=== PATIENT | male | born 1955 | race Caucasian/White ===

== ENCOUNTER 2017-04-07 14:00 | Inpatient (IN) | payer MEDICARE ==
[~2017-04-07] VITALS: Ht 172.7 cm; Wt 96.0 kg
[2017-04-07] VITALS (16 sets, daily range): BP systolic 139–228; BP diastolic 81–137; PULSE 63–106; RESP 16–19; TEMP 98.3; O2SAT 90–99
[2017-04-07] MEDS ORDERED: SODIUM CHLORIDE 0.9% FLUSH 10 ML FLUSH IVF PRN (15:45)
[2017-04-07 16:16] LABS: AUTOMATED NEUTROPHIL # 6.1 TH/MM3 (1.8-7.7); BASOPHIL # 0.1 TH/MM3 (0-0.2); BASOPHIL % 0.9 % (0.0-2.0); EOSINOPHIL % 0.3 % (0.0-4.0); HEMO FLAGS DIFF FINAL; LYMPH % 8.4 % (9.0-44.0); LYMPHOCYTE # 0.6 TH/MM3 (1.0-4.8); MEAN CELL VOLUME 88.6 FL (80.0-100.0); MEAN CORPUSCULAR HEMOGLOBIN 29.8 PG (27.0-34.0); MEAN CORPUSCULAR HGB CONC 33.6 % (32.0-36.0); MONO % 7.4 % (0.0-8.0); PLATELET COUNT 164 TH/MM3 (150-450); RED BLOOD COUNT 5.19 MIL/MM3 (4.50-5.90); RED CELL DISTRIBUTION WIDTH 14.7 % (11.6-17.2); WHITE BLOOD COUNT 7.4 TH/MM3 (4.0-11.0)
--- NOTE | 2017-04-07 16:28 | RADRPT ---
EXAM DATE/TIME: 04/07/2017 16:00 [place] COMPARISON: No previous studies available for comparison. INDICATIONS : Shortness of breath. MEDICAL HISTORY : None. SURGICAL HISTORY : None. ENCOUNTER: Initial ACUITY: 1 day PAIN SCORE: 0/10 LOCATION: Bilateral chest FINDINGS: A single view of the chest demonstrates the lungs to be symmetrically aerated without evidence of mas s, or infiltrate. There is bilateral lateral costophrenic angle blunting could be pleural effusions . The cardiomediastinal contours are unremarkable. Ununited left clavicular fracture CONCLUSION: Blunting of both costophrenic angles suspicious for pleural effusions. No focal infiltrate Phoenix Kilgore MD on April 07, 2017 at 16:25 Board Certified Radiologist. This report was verified electronically.
[2017-04-07 16:29] LABS: APTT (PATIENT) 28.3 SEC (24.3-30.1); PROTHROMBIN TIME - PATIENT 11.2 SEC (9.8-11.6)
--- NOTE | 2017-04-07 16:31 | PD ---
HPI Chief Complaint: Respiratory Symptoms Time Seen by Provider: 16:31 (Mehnaz Juarez) Time Seen by Provider: 07:49 (Suzanne Workman DO) Travel History International Travel<30 days: No Contact w/Intl Traveler<30days: No Traveled to known affect area: No (Mehnaz Juarez) History of Present Illness HPI 61-year-old male with history of COPD, tobacco dependency, and occasional marijuana use, presents to emergency department for evaluation of worsening shortness of breath. Patient states that over the last week his shortness of breath has been worsening. He states he has had COPD exacerbations in the past , but this is different. He says it is accompanied by a productive cough of white frothy sputum. He also states that he cannot even walk across the room without significant shortness of breath. Denies any fever or chills. Denies any chest pain. Denies any abdominal pain, nausea, or vomiting. He has no other symptoms to report at this time. (Mehnaz Juarez) PFSH Past Medical History COPD: Yes (Mehnaz Juarez) Social History Tobacco Use: Yes Substance Use: Yes (Mehnaz Juarez) Allergies-Medications (Allergen,Severity, Reaction): Coded Allergies: No Known Allergies (Unverified , 04/07/17) Reported Meds & Prescriptions Reported Meds & Active Scripts Active Reported Metoprolol Tartrate 25 Mg Tab 25 Mg PO BID Trazodone (Trazodone HCl) 150 Mg Tablet 150 Mg PO HS Enalapril (Enalapril Maleate) 20 Mg Tab 20 Mg PO DAILY Aspirin 81 Mg Chew 81 Mg CHEW DAILY Tamsulosin (Tamsulosin HCl) 0.4 Mg Cap 0.4 Mg PO HS (Suzanne Workman DO) Review of Systems Except as stated in HPI: all other systems reviewed are Neg (Mehnaz Juarez ) Physical Exam Narrative GENERAL: Well-nourished male patient, sitting up in bed, tachypneic, but in no significant distress SKIN: Focused skin assessment warm/dry. HEAD: Atraumatic. Normocephalic. EYES: Pupils equal and round. No scleral icterus. No injection or drainage. ENT: No nasal bleeding or discharge. Mucous membranes pink and moist. NECK: Trachea midline. No JVD. CARDIOVASCULAR: Elevated rate and regular rhythm. RESPIRATORY: No accessory muscle use. Diminished, faint wheeze, fine crackles in the bases. Breath sounds equal bilaterally. GASTROINTESTINAL: Abdomen soft, non-tender, nondistended. Hepatic and splenic margins not palpable. MUSCULOSKELETAL: No obvious deformities. No clubbing. No cyanosis. 1+ bilateral lower extremity edema. NEUROLOGICAL: Awake and alert. No obvious cranial nerve deficits. Motor grossly within normal limits. Normal speech. PSYCHIATRIC: Appropriate mood and affect; insight and judgment normal. (Mehnaz Juarez) Data Data Last Documented VS Vital Signs Date Time Temp Pulse Resp B/P Pulse Ox O2 Delivery O2 Flow Rate FiO2 04/07/17 18:35 106 228/128 04/07/17 18:19 95 3.00 04/07/17 17:54 18 Nasal Cannula 04/07/17 14:13 98.3 (Suzanne Workman DO) Orders Complete Blood Count With Diff (04/07/17 15:45) Basic Metabolic Panel (Bmp) (04/07/17 15:45) B-Type Natriuretic Peptide (04/07/17 15:45) Act Partial Throm Time (Ptt) (04/07/17 15:45) Prothrombin Time / Inr (Pt) (04/07/17 15:45) Ckmb (Isoenzyme) Profile (04/07/17 15:45) Troponin I (04/07/17 15:45) Iv Access Insert/Monitor (04/07/17 15:45) Electrocardiogram (04/07/17 15:45) Ecg Monitoring (04/07/17 15:45) Oximetry (04/07/17 15:45) Oxygen Administration (04/07/17 15:45) Chest, Single Ap (04/07/17 15:45) Sodium Chloride 0.9% Flush (Ns Flush) (04/07/17 15:45) Hydralazine Inj (Apresoline Inj) (04/07/17 16:45) CKMB (04/07/17 15:00) CKMB% (04/07/17 15:00) Albuterol-Ipratropium Neb (Duoneb Neb) (04/07/17 17:30) Albuterol-Ipratropium Neb (Duoneb Neb) (04/07/17 17:30) Furosemide Inj (Lasix Inj) (04/07/17 18:15) Nitroglycerin 2% Oint (Nitroglycerin 2% (04/07/17 18:30) Admit Order (Ed Use Only) (04/07/17 18:35) (Suzanne Workman DO) Labs Laboratory Tests Test 04/07/17 15:00 White Blood Count 7.4 TH/MM3 Red Blood Count 5.19 MIL/MM3 Hemoglobin 15.5 GM/DL Hematocrit 46.0 % Mean Corpuscular Volume 88.6 FL Mean Corpuscular Hemoglobin 29.8 PG Mean Corpuscular Hemoglobin 33.6 % Concent Red Cell Distribution Width 14.7 % Platelet Count 164 TH/MM3 Mean Platelet Volume 10.5 FL Neutrophils (%) (Auto) 83.0 % Lymphocytes (%) (Auto) 8.4 % Monocytes (%) (Auto) 7.4 % Eosinophils (%) (Auto) 0.3 % Basophils (%) (Auto) 0.9 % Neutrophils # (Auto) 6.1 TH/MM3 Lymphocytes # (Auto) 0.6 TH/MM3 Monocytes # (Auto) 0.5 TH/MM3 Eosinophils # (Auto) 0.0 TH/MM3 Basophils # (Auto) 0.1 TH/MM3 CBC Comment DIFF FINAL Differential Comment Prothrombin Time 11.2 SEC Prothromb Time International 1.0 RATIO Ratio Activated Partial 28.3 SEC Thromboplast Time Sodium Level 139 MEQ/L Potassium Level 3.6 MEQ/L Chloride Level 104 MEQ/L Carbon Dioxide Level 23.3 MEQ/L Anion Gap 12 MEQ/L Blood Urea Nitrogen 13 MG/DL Creatinine 1.15 MG/DL Estimat Glomerular Filtration 65 ML/MIN Rate Random Glucose 92 MG/DL Calcium Level 8.4 MG/DL Total Creatine Kinase 124 U/L Creatine Kinase MB 5.0 NG/ML Troponin I 0.04 NG/ML B-Type Natriuretic Peptide 1852 PG/ML (Suzanne Workman DO) MDM Medical Decision Making Medical Screen Exam Complete: Yes Emergency Medical Condition: Yes Medical Record Reviewed: Yes Differential Diagnosis COPD exacerbation versus pneumonia versus influenza versus CHF versus cardiac arrhythmia versus electrolyte abnormality Narrative Course 61-year-old male presents to emergency department for evaluation of worsening shortness of breath. Patient appears without distress. Patient requests oxygen and this maintains his oxygen saturation greater than 94%. Patient becomes panicked when the oxygen is turned off, however he is not on oxygen at home. Lab work, duo neb, and oxygen are ordered. He is quite hypertensive and given hydralazine IV, Laboratory Tests Test 04/07/17 15:00 White Blood Count 7.4 TH/MM3 Red Blood Count 5.19 MIL/MM3 Hemoglobin 15.5 GM/DL Hematocrit 46.0 % Mean Corpuscular Volume 88.6 FL Mean Corpuscular Hemoglobin 29.8 PG Mean Corpuscular Hemoglobin 33.6 % Concent Red Cell Distribution Width 14.7 % Platelet Count 164 TH/MM3 Mean Platelet Volume 10.5 FL Neutrophils (%) (Auto) 83.0 % Lymphocytes (%) (Auto) 8.4 % Monocytes (%) (Auto) 7.4 % Eosinophils (%) (Auto) 0.3 % Basophils (%) (Auto) 0.9 % Neutrophils # (Auto) 6.1 TH/MM3 Lymphocytes # (Auto) 0.6 TH/MM3 Monocytes # (Auto) 0.5 TH/MM3 Eosinophils # (Auto) 0.0 TH/MM3 Basophils # (Auto) 0.1 TH/MM3 CBC Comment DIFF FINAL Differential Comment Prothrombin Time 11.2 SEC Prothromb Time International 1.0 RATIO Ratio Activated Partial 28.3 SEC Thromboplast Time Sodium Level 139 MEQ/L Potassium Level 3.6 MEQ/L Chloride Level 104 MEQ/L Carbon Dioxide Level 23.3 MEQ/L Anion Gap 12 MEQ/L Blood Urea Nitrogen 13 MG/DL Creatinine 1.15 MG/DL Estimat Glomerular Filtration 65 ML/MIN Rate Random Glucose 92 MG/DL Calcium Level 8.4 MG/DL Total Creatine Kinase 124 U/L Creatine Kinase MB 5.0 NG/ML Troponin I 0.04 NG/ML B-Type Natriuretic Peptide 1852 PG/ML Last Impressions Chest X-Ray 04/07/17 1549 Signed Impressions: Service Date/Time: March 16:00 - CONCLUSION: Blunting of both costophrenic angles suspicious for pleural effusions. No focal infiltrate Phoenix Kilgore MD Patient is given 20 mg of IV Lasix and 1 inch Nitropaste. I have reviewed all the findings and labs with him. Patient confirms he has no history of congestive heart failure. A call has been placed to [facility] for admission. 185 patient's blood pressure remains elevated. It is 211/124. My attending physician has ordered nitro drip and we have called Dr. Mcclelland for an update. ( Mehnaz Juarez) Diagnosis Primary Impression: CHF (congestive heart failure) Qualified Code: I50.9 - Acute congestive heart failure, unspecified congestive heart failure type Additional Impressions: Pleural effusion on left Pleural effusion on right Hypertensive urgency Admitting Information Admitting Physician Requests: Admit (Mehnaz Juarez) Condition: Stable Mehnaz Juarez Apr 07, 2017 16:31 Suzanne Workman DO Apr 08, 2017 14:20
[2017-04-07] MEDS ORDERED: METO25TA3 PO (16:40)
[2017-04-07] MEDS ORDERED: ASPI81CH CHEW (16:40)
[2017-04-07] MEDS ORDERED: TAMS0.4C4 PO (16:40)
[2017-04-07] MEDS ORDERED: TRAZ1TAB45 PO (16:40)
[2017-04-07] MEDS ORDERED: ENAL20TA PO (16:40)
[2017-04-07 16:42] LABS: ANION GAP 12 MEQ/L (5-15); BICARBONATE 23.3 MEQ/L (21.0-32.0); BLOOD UREA NITROGEN 13 MG/DL (7-18); CHLORIDE 104 MEQ/L (98-107); GLOMERULAR FILTRATION RATE 65 ML/MIN (>89); POTASSIUM 3.6 MEQ/L (3.5-5.1); SODIUM (NA) 139 MEQ/L (136-145)
[2017-04-07 16:45] LABS: CREATINE KINASE 124 U/L (39-308)
[2017-04-07] MEDS ORDERED: hydrALAZINE HCL 20 MG/ML VIAL IV PUSH ONE (16:45)
[2017-04-07] MEDS ORDERED: RESP: ALBUTEROL 2.5 MG/IPRATROPIUM 0.5 MG NEB (SCH) NEB ONE ×2 (17:30)
[2017-04-07] MEDS ORDERED: FUROSEMIDE 40 MG/4 ML VIAL IV PUSH ONE (18:15)
--- NOTE | 2017-04-07 18:24 | PD ---
Physical Exam Narrative I, Dr. Workman, have reviewed the advance practice practitioner's documentation and am in agreement, met with the patient face to face, made the diagnosis, and the medical decision making was done by me. *My assessment and Findings: COPD exacerbation vs. CHF vs. pulmonary edema vs. Pneumonia vs. ACS 61yo M with sob for 5 days. +Cig smoking. Pt does appear tachypneic but speaking in sentences. O2 sat 93% on 3L NC. States he does not use any oxygen at home. Labs reviewed, no leukocytosis. BNP 1852. Troponin 0.04. CXR showed blunting of both costophrenic angles suspicious for pleural effusions. no focal infiltrate. BP was also elevated and pt was given hydralazine and lasix as well as nitroglycerin ointment. Pt states he feels better while on oxygen. Pt to be admitted for CHF. Discussed with [facility]ist Dr. Mcclelland and admitted to Dr. Perdomo. Reevaluated at bedside and blood pressure is going up so will start pt on nitroglycerin drip and change admission to [facility]. Data Data Last Documented VS Vital Signs Date Time Temp Pulse Resp B/P Pulse Ox O2 Delivery O2 Flow Rate FiO2 04/07/17 18:35 106 228/128 04/07/17 18:19 95 3.00 04/07/17 17:54 18 Nasal Cannula 04/07/17 14:13 98.3 Orders Complete Blood Count With Diff (04/07/17 15:45) Basic Metabolic Panel (Bmp) (04/07/17 15:45) B-Type Natriuretic Peptide (04/07/17 15:45) Act Partial Throm Time (Ptt) (04/07/17 15:45) Prothrombin Time / Inr (Pt) (04/07/17 15:45) Ckmb (Isoenzyme) Profile (04/07/17 15:45) Troponin I (04/07/17 15:45) Iv Access Insert/Monitor (04/07/17 15:45) Electrocardiogram (04/07/17 15:45) Ecg Monitoring (04/07/17 15:45) Oximetry (04/07/17 15:45) Oxygen Administration (04/07/17 15:45) Chest, Single Ap (04/07/17 15:45) Sodium Chloride 0.9% Flush (Ns Flush) (04/07/17 15:45) Hydralazine Inj (Apresoline Inj) (04/07/17 16:45) CKMB (04/07/17 15:00) CKMB% (04/07/17 15:00) Albuterol-Ipratropium Neb (Duoneb Neb) (04/07/17 17:30) Albuterol-Ipratropium Neb (Duoneb Neb) (04/07/17 17:30) Furosemide Inj (Lasix Inj) (04/07/17 18:15) Nitroglycerin 2% Oint (Nitroglycerin 2% (04/07/17 18:30) Admit Order (Ed Use Only) (04/07/17 18:35) Labs Laboratory Tests Test 04/07/17 15:00 White Blood Count 7.4 TH/MM3 Red Blood Count 5.19 MIL/MM3 Hemoglobin 15.5 GM/DL Hematocrit 46.0 % Mean Corpuscular Volume 88.6 FL Mean Corpuscular Hemoglobin 29.8 PG Mean Corpuscular Hemoglobin 33.6 % Concent Red Cell Distribution Width 14.7 % Platelet Count 164 TH/MM3 Mean Platelet Volume 10.5 FL Neutrophils (%) (Auto) 83.0 % Lymphocytes (%) (Auto) 8.4 % Monocytes (%) (Auto) 7.4 % Eosinophils (%) (Auto) 0.3 % Basophils (%) (Auto) 0.9 % Neutrophils # (Auto) 6.1 TH/MM3 Lymphocytes # (Auto) 0.6 TH/MM3 Monocytes # (Auto) 0.5 TH/MM3 Eosinophils # (Auto) 0.0 TH/MM3 Basophils # (Auto) 0.1 TH/MM3 CBC Comment DIFF FINAL Differential Comment Prothrombin Time 11.2 SEC Prothromb Time International 1.0 RATIO Ratio Activated Partial 28.3 SEC Thromboplast Time Sodium Level 139 MEQ/L Potassium Level 3.6 MEQ/L Chloride Level 104 MEQ/L Carbon Dioxide Level 23.3 MEQ/L Anion Gap 12 MEQ/L Blood Urea Nitrogen 13 MG/DL Creatinine 1.15 MG/DL Estimat Glomerular Filtration 65 ML/MIN Rate Random Glucose 92 MG/DL Calcium Level 8.4 MG/DL Total Creatine Kinase 124 U/L Creatine Kinase MB 5.0 NG/ML Troponin I 0.04 NG/ML B-Type Natriuretic Peptide 1852 PG/ML [facility] Supervised Visit with [facility]: Yes Interpretation(s) EKG: NSR 92bpm. Normal axis. ST depression V5, V6. Critical Care Narrative Aggregate critical care time was 60 minutes. Time to perform other separately billable procedures was not included in the critical care time. My time did not include minutes spent treating any other patients simultaneously or on activities that did not directly contribute to the patient's treatment. The services I provided to this patient were to treat and/or prevent clinically significant deterioration that could result in: cardiovascular collapse or . I provided critical care services requiring my management, as noted below: Chart data review, documentation time, medication orders and management, vital sign assessments/reviewing monitor data, ordering and reviewing lab tests, ordering and interpreting/reviewing x-rays and diagnostic studies, care of the patient and discussion of the patient with the admitting physicians. Diagnosis Primary Impression: Pulmonary edema Qualified Code: J81.0 - Acute pulmonary edema Admitting Information Admitting Physician Requests: it Suzanne Workman DO Apr 07, 2017 18:24
[2017-04-07] MEDS ORDERED: NITROGLYCERIN 2% OINT 1 GM PACKET TOPICAL ONE (18:30)
[2017-04-07] MEDS ORDERED: NALOXONE HCL 0.4 MG/ML AMP IV PRN (18:45)
[2017-04-07] MEDS ORDERED: SODIUM CHLORIDE 0.9% FLUSH 10 ML FLUSH IV FLUSH PRN (18:45)
[2017-04-07] MEDS ORDERED: ONDANSETRON HCL 4 MG/2 ML VIAL IVP PRN (18:45)
[2017-04-07] MEDS ORDERED: ENALAPRILAT 1.25 MG/ML VIAL IV PUSH PRN (19:00)
[2017-04-07] MEDS ORDERED: NITROGLYCERIN-DEXTROSE INJ 250 ML IV ONE (19:00)
--- NOTE | 2017-04-07 19:38 | HHI.HP ---
HPI [facility] Primary Care Physician Nathaniel Ingram III, MD Admission Diagnosis Pulmonary edema Diagnoses: Travel History International Travel<30 Days: No Contact w/Intl Traveler <30 Da: No Traveled to Known Affected Are: No History of Present Illness This is a very pleasant 61-year-old male patient of Dr. Ingram. The patient still smokes. He is now smoking less than 1 pack a day. He recently moved to this area from [place]. He had a cardiac catheterization in [place] about 2 years ago. He stated that this cardiac catheterization was normal. He came into the emergency department with worsening shortness of breath and lower extremity edema. His arrival blood pressure was about 220. He stated that he has had trouble with his blood pressure for number of years. The blood pressure control has been especially difficult to achieve up the last 2 years. He denies any chest pain. No fever chills or diaphoresis. He coughs repeatedly. He has chronic wheezing. He was seen by the undersigned in room C 29 at the emergency department. He denies oriented. He continues to cough but feeling much better. He specifically stated that his breathing got much better once his supplemental oxygen was started. Review of Systems Other As detailed above, 10 systems reviewed and otherwise negative Past Family Social History Past Medical History COPD tobacco dependency Occasional marijuana Poorly controlled hypertension Enlarged prostate Insomnia Past Surgical History Cardiac catheterization 2 years ago Surgery involving his right tibia Reported Medications Reported Meds & Active Scripts Active Reported Metoprolol Tartrate 25 Mg Tab 25 Mg PO BID Trazodone (Trazodone HCl) 150 Mg Tablet 150 Mg PO HS Enalapril (Enalapril Maleate) 20 Mg Tab 20 Mg PO DAILY Aspirin 81 Mg Chew 81 Mg CHEW DAILY Tamsulosin (Tamsulosin HCl) 0.4 Mg Cap 0.4 Mg PO HS Allergies: Coded Allergies: No Known Allergies (Unverified , 04/07/17) Family History Reviewed but not contributory Social History Smokes less than pack a day, no excessive alcohol, occasional marijuana, no illicit drug use otherwise Physical Exam Vital Signs Vital Signs Date Time Temp Pulse Resp B/P Pulse Ox O2 Delivery O2 Flow Rate FiO2 04/07/17 19:20 93 18 170/92 91 Nasal Cannula 4 04/07/17 19:07 200/105 04/07/17 18:51 102 19 211/124 97 Nasal Cannula 3 04/07/17 18:35 106 228/128 04/07/17 18:19 95 3.00 04/07/17 17:54 90 18 161/103 95 Nasal Cannula 3 04/07/17 17:03 88 17 164/108 95 Nasal Cannula 3 04/07/17 16:43 94 19 185/137 95 Nasal Cannula 04/07/17 16:41 95 Nasal Cannula 3 04/07/17 16:41 90 Room Air 04/07/17 16:32 17 93 Room Air 04/07/17 16:20 95 Nasal Cannula 0.5 04/07/17 16:19 17 95 Nasal Cannula 0.5 04/07/17 14:26 70 18 96 Nasal Cannula 04/07/17 14:13 98.3 97 18 170/108 94 Nasal Cannula 2 Physical Exam GENERAL: This is a well-nourished, well-developed patient, mild resting dyspnea . SKIN: No rashes, ecchymoses or lesions. Cool and dry. HEAD: Atraumatic. Normocephalic. No temporal or scalp tenderness. EYES: Pupils equal round and reactive. Extraocular motions intact. No scleral icterus. No injection or drainage. ENT: Nose without bleeding, purulent drainage or septal hematoma. Throat without erythema, tonsillar hypertrophy or exudate. Uvula midline. Airway patent. NECK: Trachea midline. No JVD or lymphadenopathy. Supple, nontender, no meningeal signs. CARDIOVASCULAR: Regular rate and rhythm without murmurs, gallops, or rubs. RESPIRATORY: Bilateral wheezes and crackles GASTROINTESTINAL: Abdomen soft, non-tender, nondistended. No hepato-splenomegaly , or palpable masses. No guarding. MUSCULOSKELETAL: Extremities without clubbing, cyanosis, or edema. No joint tenderness, effusion, or edema noted. No calf tenderness. Negative Homans sign bilaterally. NEUROLOGICAL: Awake and alert. Cranial nerves II through XII intact. Normal speech. Laboratory Laboratory Tests Test 04/07/17 15:00 White Blood Count 7.4 Red Blood Count 5.19 Hemoglobin 15.5 Hematocrit 46.0 Mean Corpuscular Volume 88.6 Mean Corpuscular Hemoglobin 29.8 Mean Corpuscular Hemoglobin 33.6 Concent Red Cell Distribution Width 14.7 Platelet Count 164 Mean Platelet Volume 10.5 Neutrophils (%) (Auto) 83.0 Lymphocytes (%) (Auto) 8.4 Monocytes (%) (Auto) 7.4 Eosinophils (%) (Auto) 0.3 Basophils (%) (Auto) 0.9 Neutrophils # (Auto) 6.1 Lymphocytes # (Auto) 0.6 Monocytes # (Auto) 0.5 Eosinophils # (Auto) 0.0 Basophils # (Auto) 0.1 CBC Comment DIFF FINAL Differential Comment Prothrombin Time 11.2 Prothromb Time International 1.0 Ratio Activated Partial 28.3 Thromboplast Time Sodium Level 139 Potassium Level 3.6 Chloride Level 104 Carbon Dioxide Level 23.3 Anion Gap 12 Blood Urea Nitrogen 13 Creatinine 1.15 Estimat Glomerular Filtration 65 Rate Random Glucose 92 Calcium Level 8.4 Total Creatine Kinase 124 Creatine Kinase MB 5.0 Troponin I 0.04 B-Type Natriuretic Peptide 1852 Result Diagram: 04/07/17 1500 04/07/17 1500 Imaging Last 24 hours Impressions Chest X-Ray 04/07/17 1545 Signed Impressions: Service Date/Time: March 16:00 - CONCLUSION: Blunting of both costophrenic angles suspicious for pleural effusions. No focal infiltrate Phoenix Kilgore MD Assessment and Plan Assessment and Plan Assessment Hypertensive emergency Pulmonary edema Severe COPD Probable acute heart failure Tobacco abuse Management The patient has been admitted to telemetry Lasix 40 mg IV every 12 hours Losartan 50 mg daily Solu-Medrol intravenously 1 day Supplemental potassium 2-D echocardiogram Serial CKs and troponins Consult Cardiology Supplemental oxygen Nebulizers as needed Discussed with patient Discussed with nurse 45 minutes Alton Perdomo MD Apr 07, 2017 19:38
[2017-04-07] MEDS ORDERED: RESP: ALBUTEROL 2.5 MG/IPRATROPIUM 0.5 MG NEB (PRN) NEB (20:00)
[2017-04-07] MEDS: methylPREDNISolone SOD SUCC 40 MG/1 ML VIAL IV PUSH SCH (20:36)
[2017-04-07] MEDS: SODIUM CHLORIDE 0.9% FLUSH 10 ML FLUSH IV FLUSH SCH (20:52)
[2017-04-07] MEDS: traZODone HCL 50 MG TAB PO SCH (21:00)
[2017-04-07] MEDS ORDERED: NON-FORMULARY DRUG (Trazodone 150 MG) PO SCH (21:00)
[2017-04-07] MEDS: TAMSULOSIN HCL 0.4 MG CAP PO SCH (23:36)
[2017-04-07] MEDS: METOPROLOL TARTRATE 25 MG TAB PO SCH (23:36)
[2017-04-07] MEDS: HEPARIN SODIUM - SQ 10,000 UNITS/ML VIAL SQ SCH (23:36)
[2017-04-08] VITALS (13 sets, daily range): BP systolic 138–186; BP diastolic 88–121; PULSE 69–99; RESP 16–27; TEMP 97.6–98.5; O2SAT 94–99
[2017-04-08 05:56] LABS: AUTOMATED NEUTROPHIL # 5.4 TH/MM3 (1.8-7.7); BASOPHIL % 0.5 % (0.0-2.0); HEMATOCRIT 50.3 % (39.0-51.0); HEMO FLAGS DIFF FINAL; LYMPH % 7.1 % (9.0-44.0); LYMPHOCYTE # 0.4 TH/MM3 (1.0-4.8); MEAN CORPUSCULAR HEMOGLOBIN 28.9 PG (27.0-34.0); MEAN CORPUSCULAR HGB CONC 32.5 % (32.0-36.0); MONO % 2.4 % (0.0-8.0); PLATELET COUNT 199 TH/MM3 (150-450); RED BLOOD COUNT 5.65 MIL/MM3 (4.50-5.90); RED CELL DISTRIBUTION WIDTH 14.6 % (11.6-17.2)
[2017-04-08] MEDS: methylPREDNISolone SOD SUCC 40 MG/1 ML VIAL IV PUSH SCH ×4 (06:06→17:12)
[2017-04-08 06:51] LABS: BICARBONATE 24.7 MEQ/L (21.0-32.0); POTASSIUM 3.8 MEQ/L (3.5-5.1)
[2017-04-08] MEDS: METOPROLOL TARTRATE 25 MG TAB PO SCH (07:37)
[2017-04-08] MEDS: HEPARIN SODIUM - SQ 10,000 UNITS/ML VIAL SQ SCH ×2 (07:38→21:20)
[2017-04-08] MEDS: FUROSEMIDE 40 MG/4 ML VIAL IV PUSH SCH ×3 (07:38→21:19)
[2017-04-08] MEDS: ASPIRIN 81 MG CHEW TAB CHEW SCH (07:46)
[2017-04-08] MEDS ORDERED: METOPROLOL TARTRATE 25 MG TAB PO ONE (08:00)
[2017-04-08] MEDS ORDERED: ENALAPRIL MALEATE 10 MG TAB PO SCH (09:00)
[2017-04-08] MEDS ORDERED: FUROSEMIDE 40 MG/4 ML VIAL IV PUSH SCH (09:00)
[2017-04-08] MEDS: SODIUM CHLORIDE 0.9% FLUSH 10 ML FLUSH IV FLUSH SCH ×2 (09:00→21:21)
[2017-04-08] MEDS: cloNIDine HCL 0.1 MG TAB PO PRN ×2 (09:41→15:43)
[2017-04-08] MEDS: POTASSIUM CHLORIDE 20 MEQ CONTROLLED RELEASE TAB PO SCH ×2 (09:41→21:19)
--- NOTE | 2017-04-08 10:16 | MB ---
cc: MIRNA KHANNA MD DATE OF CONSULTATION 04/08/2017 REASON FOR CONSULTATION CHF HISTORY OF PRESENT ILLNESS Mr. Raymundo is a 61-year-old man you does have a prior history of heart failure. He reports that after doing some illicit drugs several years ago, he had a heart failure episode that resulted in cardiac catheterization. He reports his cardiac catheterization revealed both clean coronaries and normal LV function. Since that time, he denies any illicit drug use. He reports he has been taking his blood pressure pills although his meds were changed at that hospitalization and he has had difficulty with blood pressure control since that time. Today on his arrival, his systolic was in the 220's. The patient reports he is feeling some better now. He has had some progressive shortness of breath that precipitated his visit. PAST MEDICAL HISTORY Significant for: 1. Hypertension 2. COPD 3. CHF 4. Tobacco 5. BPH OUTPATIENT MEDICATIONS Reportedly include: 1. Metoprolol 25 mg b.i.d. 2. Enalapril 20 mg a day 3. Flomax 0.4 mg q.h.s. 4. Aspirin 5. Trazodone ALLERGIES NO KNOWN DRUG ALLERGIES. FAMILY HISTORY Noncontributory SOCIAL HISTORY The patient does smoke and denies any illicit drug use. REVIEW OF SYSTEMS Except as mentioned in the HPI, all 12 systems are negative. PHYSICAL EXAM VITAL SIGNS: Do show a peak BP of 211/112, currently 186/121, heart rate 99, respiratory rate 16. GENERAL: He is an obese man who is in no apparent distress. NECK: His neck is free from JVD. LUNGS: The lungs do have some fine crackles in the bases. CARDIOVASCULAR: He has a normal S1 and S2. I do not appreciate any murmurs, rubs or gallops. ABDOMEN: Soft. EXTREMITIES: The extremities are free from edema. Chest x-ray shows blunting of both costophrenic angles. LAB VALUES Significant for a creatinine of 1.21. The troponins is 0.04/0.04/0.03 with a BNP of 852. IMPRESSION Uncontrolled hypertension - This is almost certainly the etiology to his heart failure as well. I discussed the importance of medication compliance as well as fluid and sodium restrictions. I will increase his meds. CHF - This appears to be an acute on chronic diastolic dysfunction. Echocardiogram will be requested. Again, meds will be adjusted. DISPOSITION The patient is stable in the a.m. on p.o. meds. It would be reasonable for him to be discharged. Elizabeth Sorto/DJL /9:50 AM /10:10 AM
[2017-04-08] MEDS: TAMSULOSIN HCL 0.4 MG CAP PO SCH (14:43)
--- NOTE | 2017-04-08 14:52 | EKG ---
Date Performed: 04/07/2017 Time Performed: 16:39:59 PTAGE: 61 years EKG: Sinus rhythm WITH OCCASIONAL VENTRICULAR PREMATURE COMPLEXES LEFT ATRIAL ENLARGEMENT NONSPECIFIC ST & T-WAVE ABNO RMALITY ABNORMAL ECG NO PREVIOUS TRACING DOCTOR: Fercho Abbasi Interpretating Date/Time 04/08/2017 14:49:54
--- NOTE | 2017-04-08 16:14 | ECHRPT ---
Indication: Heart failure, unspecified CONCLUSIONS Mildly dilated left ventricle. Wall thickness is normal. The left ventricular systolic function is severely reduced with an estimated ejection fraction in th e range of 30-35%. The left atrial size is mildly dilated. [id number] mitral valve regurgitation. Trace aortic valve regurgitation. There is trace tricuspid valve regurgitation. The estimated pulmonary arterial pressure is 31 mmHg. BP: 182 / 116 HR: 93 Rhythm: Sinus MEASUREMENTS (Male / Female) Normal Values Technical Quality:Fair 2D ECHO LV Diastolic Diameter PLAX 5.9 cm 4.2 - 5.9 / 3.9 - 5.3 cm LV Systolic Diameter PLAX 5.0 cm IVS Diastolic Thickness 1.1 cm 0.6 - 1.0 / 0.6 - 0.9 cm LVPW Diastolic Thickness 1.0 cm 0.6 - 1.0 / 0.6 - 0.9 cm LV Relative Wall Thickness 0.4 RV Internal Dim ED PLAX 2.6 cm LA Systolic Diameter LX 4.4 cm 3.0 - 4.0 / 2.7 - 3.8 cm M-MODE Aortic Root Diameter MM 3.5 cm AV Cusp Separation MM 2.2 cm DOPPLER MR Peak Velocity 500.0 cm/s MR Peak Gradient 100.0 mmHg TR Peak Velocity 256.0 cm/s TR Peak Gradient 26.2 mmHg FINDINGS LEFT VENTRICLE Mildly dilated left ventricle. Wall thickness is normal. The left ventricular systolic function is severely reduced with an estimated ejection fraction in th e range of 30-35%. RIGHT VENTRICLE Normal right ventricular size and systolic function. LEFT ATRIUM The left atrial size is mildly dilated. RIGHT ATRIUM The right atrial size is normal. ATRIAL SEPTUM Normal atrial septal thickness without atrial level shunting by limited color doppler interrogation. AORTA The aortic root and proximal ascending aorta are normal in size on limited imaging. MITRAL VALVE [id number] mitral valve regurgitation. AORTIC VALVE Trace aortic valve regurgitation. TRICUSPID VALVE There is trace tricuspid valve regurgitation. The estimated pulmonary arterial pressure is 31 mmHg. PULMONARY VALVE The pulmonary valve is not well visualized. VESSELS The inferior vena cava is normal in size. PERICARDIUM No pericardial effusion. Valente Linton MD, FACC, [facility] (Electronically Signed) Final Date:08 April 2017 16:13
--- NOTE | 2017-04-08 19:35 | HHI.PR ---
Subjective Interval History Alert, oriented, feels better, less cough, still wheezing however improved since yesterday Review of Systems Constitutional Constitutional Remarks As detailed above, 10 systems reviewed and otherwise negative Vitals/Results Intake & Output 04/07/17 04/07/17 04/08/17 15:00 23:00 07:00 Output Total 700 ml Balance -700 ml Output Urine Total 700 ml # Voids 1 Vital Signs Vital Signs Date Time Temp Pulse Resp B/P Pulse Ox O2 Delivery O2 Flow Rate FiO2 04/08/17 17:00 142/92 04/08/17 16:00 138/97 04/08/17 15:30 98.5 82 27 164/118 98 04/08/17 14:49 82 04/08/17 12:00 98.0 75 22 148/94 94 04/08/17 09:50 80 04/08/17 09:30 97.8 80 24 167/88 96 04/08/17 08:39 99 16 186/121 95 Room Air 04/08/17 07:25 93 16 182/116 95 Room Air 04/08/17 02:53 94 18 166/90 95 Nasal Cannula 4 04/08/17 00:11 95 18 152/90 99 Room Air 04/07/17 23:20 80 16 145/88 99 Nasal Cannula 4 04/07/17 21:40 93 18 139/81 94 Nasal Cannula 4 04/07/17 21:03 93 18 150/98 99 Nasal Cannula 4 04/07/17 20:15 63 18 177/90 93 Nasal Cannula 4 CBC/BMP: 04/08/17 0535 04/08/17 0535 Lab Results Laboratory Tests Test 04/08/17 04/08/17 04/08/17 00:35 05:35 15:50 Troponin I 0.04 NG/ML 0.03 NG/ML 0.03 NG/ML White Blood Count 6.0 TH/MM3 Red Blood Count 5.65 MIL/MM3 Hemoglobin 16.3 GM/DL Hematocrit 50.3 % Mean Corpuscular Volume 89.0 FL Mean Corpuscular Hemoglobin 28.9 PG Mean Corpuscular Hemoglobin 32.5 % Concent Red Cell Distribution Width 14.6 % Platelet Count 199 TH/MM3 Mean Platelet Volume 10.1 FL Neutrophils (%) (Auto) 90.0 % Lymphocytes (%) (Auto) 7.1 % Monocytes (%) (Auto) 2.4 % Eosinophils (%) (Auto) 0.0 % Basophils (%) (Auto) 0.5 % Neutrophils # (Auto) 5.4 TH/MM3 Lymphocytes # (Auto) 0.4 TH/MM3 Monocytes # (Auto) 0.1 TH/MM3 Eosinophils # (Auto) 0.0 TH/MM3 Basophils # (Auto) 0.0 TH/MM3 CBC Comment DIFF FINAL Differential Comment Sodium Level 139 MEQ/L Potassium Level 3.8 MEQ/L Chloride Level 104 MEQ/L Carbon Dioxide Level 24.7 MEQ/L Anion Gap 10 MEQ/L Blood Urea Nitrogen 15 MG/DL Creatinine 1.21 MG/DL Estimat Glomerular Filtration 61 ML/MIN Rate Random Glucose 123 MG/DL Calcium Level 8.5 MG/DL Physical Exam General General Appearance: Comfortable, Obese Eyes Eye Exam: Pupils Reactive Ears & Nose Ears & Nose Exam: Nasal Mucosa [place] Neck Neck Exam: Trachea Midline Pulmonary Resp Exam: Breath Sounds Equal, No Distress Cardiology CV Exam: Normal Sinus Rhythm, Good Perfusion Gastrointestinal/Abdomen GI Exam: Soft, Non-Tender, Bowel Sounds Present Musculoskeletal MS Exam: Normal Gait, Normal Tone Integumentary Skin Exam: Warm, Dry Neurologic Neuro Exam: Alert, Awake, Oriented, Speech Clear, Moving All Extremities, 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, No Focal Deficits Psychiatric Psych Exam: Appropriate Responses VTE Prophylaxis VTE Prophylaxis Meds: Heparin Assessment/Plan Assessment/Plan Assessment Hypertensive emergency, blood pressure improved Frequent ectopy Pulmonary edema Severe COPD Severe dyspnea, improved acute heart failure Ejection fraction 30-35% Rule out sleep apnea Tobacco abuse Management Continue telemetry Lasix 40 mg IV every 12 hours Losartan 50 mg daily Solu-Medrol discontinued Prednisone by mouth started Supplemental potassium Cardiology following, thank you Supplemental oxygen Nebulizers as needed Follow electrolytes and replace as needed Follow renal function Follow hemoglobin Needs to lose weight Likely needs sleep study also Discussed with patient Discussed with nurse 35 minutes Alton Perdomo MD Apr 08, 2017 19:34
[2017-04-08] MEDS ORDERED: POTASSIUM CHLORIDE 25 MEQ EFFERVESCENT TAB PO PRN (19:45)
[2017-04-08] MEDS ORDERED: POTASSIUM PHOSPHATE MONOBASIC 500 MG TAB PO PRN (19:45)
[2017-04-08] MEDS ORDERED: POTASSIUM PHOSPHATE MONOBASIC 500 MG TAB PO/TUBE PRN (19:45)
[2017-04-08] MEDS ORDERED: POTASSIUM CHLOR 20 MEQ PREMIX 100 ML IV PRN ×2 (19:45)
[2017-04-08] MEDS ORDERED: MAGNESIUM SULFATE INJ 2 GM in SODIUM CHLORIDE 0.9% INJ 96 ML IV PRN (19:45)
[2017-04-08] MEDS ORDERED: POTASSIUM PHOSPHATE INJ 30 MMOL in SODIUM CHLOR 0.9% 250 ML INJ 250 ML IV PRN (19:45)
[2017-04-08] MEDS ORDERED: MAGNESIUM SULFATE INJ 4 GM in SODIUM CHLORIDE 0.9% INJ 92 ML IV PRN (19:45)
[2017-04-08] MEDS ORDERED: MAGNESIUM OXIDE 400 MG TAB PO PRN (19:45)
[2017-04-08] MEDS ORDERED: SODIUM PHOSPHATE INJ 30 MMOL in SODIUM CHLOR 0.9% 250 ML INJ 240 ML IV PRN (19:45)
[2017-04-08] MEDS ORDERED: POTASSIUM CHLOR 40 MEQ PREMIX 100 ML IV PRN ×2 (19:45)
[2017-04-08] MEDS: POTASSIUM CHLORIDE 25 MEQ EFFERVESCENT TAB NG SCH (21:19)
[2017-04-08] MEDS: NIFEdipine 30 MG SUSTAINED RELEASE TAB PO SCH ×2 (21:19→21:28)
[2017-04-08] MEDS: ENALAPRIL MALEATE 10 MG TAB PO SCH (21:20)
[2017-04-08] MEDS: METOPROLOL TARTRATE 50 MG TAB PO SCH (21:21)
[2017-04-09] VITALS (23 sets, daily range): BP systolic 117–158; BP diastolic 76–100; PULSE 57–97; RESP 16–24; TEMP 97.3–98.2; O2SAT 96–98
[2017-04-09] MEDS: cloNIDine HCL 0.1 MG TAB PO PRN (00:09)
[2017-04-09] MEDS: traZODone HCL 50 MG TAB PO SCH (00:10)
[2017-04-09] MEDS: methylPREDNISolone SOD SUCC 40 MG/1 ML VIAL IV PUSH SCH ×2 (00:11→09:04)
[2017-04-09 05:37] LABS: AUTOMATED NEUTROPHIL # 7.2 TH/MM3 (1.8-7.7); BASOPHIL % 0.1 % (0.0-2.0); HEMATOCRIT 46.3 % (39.0-51.0); HEMO FLAGS DIFF FINAL; LYMPH % 4.6 % (9.0-44.0); LYMPHOCYTE # 0.4 TH/MM3 (1.0-4.8); MEAN CELL VOLUME 90.2 FL (80.0-100.0); MEAN CORPUSCULAR HEMOGLOBIN 29.2 PG (27.0-34.0); MEAN CORPUSCULAR HGB CONC 32.3 % (32.0-36.0); MONO % 1.9 % (0.0-8.0); NEUT % 93.4 % (16.0-70.0); PLATELET COUNT 175 TH/MM3 (150-450); RED BLOOD COUNT 5.14 MIL/MM3 (4.50-5.90); WHITE BLOOD COUNT 7.7 TH/MM3 (4.0-11.0)
[2017-04-09 05:53] LABS: BICARBONATE 27.5 MEQ/L (21.0-32.0); MAGNESIUM 2.4 MG/DL (1.5-2.5); POTASSIUM 4.2 MEQ/L (3.5-5.1)
[2017-04-09] MEDS: POTASSIUM CHLORIDE 25 MEQ EFFERVESCENT TAB NG SCH (09:03)
[2017-04-09] MEDS: HEPARIN SODIUM - SQ 10,000 UNITS/ML VIAL SQ SCH (09:04)
[2017-04-09] MEDS: NIFEdipine 30 MG SUSTAINED RELEASE TAB PO SCH (09:05)
[2017-04-09] MEDS: ENALAPRIL MALEATE 10 MG TAB PO SCH (09:05)
[2017-04-09] MEDS: FUROSEMIDE 40 MG/4 ML VIAL IV PUSH SCH (09:05)
[2017-04-09] MEDS: METOPROLOL TARTRATE 50 MG TAB PO SCH (09:05)
[2017-04-09] MEDS: ASPIRIN 81 MG CHEW TAB CHEW SCH (09:05)
[2017-04-09] MEDS: SODIUM CHLORIDE 0.9% FLUSH 10 ML FLUSH IV FLUSH SCH (09:06)
[2017-04-09] MEDS: POTASSIUM CHLORIDE 20 MEQ CONTROLLED RELEASE TAB PO SCH (09:06)
--- NOTE | 2017-04-09 12:13 | HHI.PR ---
Subjective Subjective Remarks some sob with activity no cp anxious to go home tele reviewed, SR no fever eating okay Review of Systems Constitutional Constitutional Remarks 12 point ros completed, negative except as noted above Vitals/Results Intake & Output 04/08/17 04/08/17 04/09/17 14:59 22:59 06:59 Intake Total 480 ml 1710 ml 240 ml Output Total 1200 ml 475 ml 150 ml Balance -720 ml 1235 ml 90 ml Intake Oral 480 ml 1710 ml 240 ml Output Urine Total 1200 ml 475 ml 150 ml # Voids 2 1 # Bowel Movements 0 0 Vital Signs Vital Signs Date Time Temp Pulse Resp B/P Pulse Ox O2 Delivery O2 Flow Rate FiO2 04/09/17 10:00 57 04/09/17 09:00 58 04/09/17 08:00 98.2 72 24 122/93 98 04/09/17 08:00 68 04/09/17 07:20 81 04/09/17 06:42 59 119/80 04/09/17 06:00 60 04/09/17 05:00 66 04/09/17 04:30 98.1 69 22 130/88 96 04/09/17 04:00 60 04/09/17 03:00 74 04/09/17 02:00 71 126/83 04/09/17 02:00 70 04/09/17 01:00 59 04/09/17 00:33 75 04/09/17 00:23 97.3 76 16 158/100 96 04/08/17 23:00 69 18 143/91 96 04/08/17 19:00 97.6 76 18 163/114 97 04/08/17 17:00 142/92 04/08/17 16:00 138/97 04/08/17 15:30 98.5 82 27 164/118 98 04/08/17 14:49 82 CBC/BMP: 04/09/17 0332 04/09/17 0332 Lab Results Laboratory Tests Test 04/08/17 04/08/17 04/09/17 15:50 19:51 03:32 Troponin I 0.03 NG/ML Potassium Level 4.5 MEQ/L 4.2 MEQ/L Phosphorus Level 2.8 MG/DL 3.5 MG/DL Magnesium Level 2.4 MG/DL 2.4 MG/DL White Blood Count 7.7 TH/MM3 Red Blood Count 5.14 MIL/MM3 Hemoglobin 15.0 GM/DL Hematocrit 46.3 % Mean Corpuscular Volume 90.2 FL Mean Corpuscular Hemoglobin 29.2 PG Mean Corpuscular Hemoglobin 32.3 % Concent Red Cell Distribution Width 15.0 % Platelet Count 175 TH/MM3 Mean Platelet Volume 10.0 FL Neutrophils (%) (Auto) 93.4 % Lymphocytes (%) (Auto) 4.6 % Monocytes (%) (Auto) 1.9 % Eosinophils (%) (Auto) 0.0 % Basophils (%) (Auto) 0.1 % Neutrophils # (Auto) 7.2 TH/MM3 Lymphocytes # (Auto) 0.4 TH/MM3 Monocytes # (Auto) 0.1 TH/MM3 Eosinophils # (Auto) 0.0 TH/MM3 Basophils # (Auto) 0.0 TH/MM3 CBC Comment DIFF FINAL Differential Comment Sodium Level 139 MEQ/L Chloride Level 104 MEQ/L Carbon Dioxide Level 27.5 MEQ/L Anion Gap 8 MEQ/L Blood Urea Nitrogen 24 MG/DL Creatinine 1.25 MG/DL Estimat Glomerular Filtration 59 ML/MIN Rate Random Glucose 130 MG/DL Calcium Level 8.6 MG/DL Physical Exam General General Appearance: Well Developed, Comfortable, Obese Eyes Eye Exam: Pupils Reactive Ears & Nose Ears & Nose Exam: Nasal Mucosa [place] Neck Neck Exam: Trachea Midline Pulmonary Resp Exam: Breath Sounds Equal, No Distress Resp Remarks faint rales at bases Cardiology CV Exam: Normal Sinus Rhythm, Good Perfusion Gastrointestinal/Abdomen GI Exam: Soft, Non-Tender, Bowel Sounds Present, Non-Distended Musculoskeletal MS Exam: Normal Gait, Normal Tone Integumentary Skin Exam: Warm, Dry Extremeties Extremities Exam: No Edema, Pedal Pulses Palpable Neurologic Neuro Exam: Alert, Awake, Oriented, Speech Clear, Moving All Extremities, Bulk Receiver Equal, No Focal Deficits Psychiatric Psych Exam: Appropriate Responses VTE Prophylaxis VTE Prophylaxis Meds: Heparin Assessment/Plan Assessment/Plan Hypertensive emergency, blood pressure improved Frequent ectopy Pulmonary edema Severe COPD Severe dyspnea, improved acute heart failure Ejection fraction 30-35% Rule out sleep apnea Tobacco abuse Management appreciate card input Dr. Nelson to eval today, poss dc Echo 30-35% change to PO Lasix continuous tele continue JOELLE/BB change to PO steroids check walk test supplemental oxygen for now lucio counselled about smoking CM consult for HHC, poss oxygen plan to dc if okay with card f/u walk test Discussed with Dr. Mcclelland/Dr. Nelson Discussed with patient Discussed with nurse This patient was seen by myself and Dr. Mcclelland, this note is written on her behalf. 35 minutes Kala Fragoso Apr 09, 2017 12:12
--- NOTE | 2017-04-09 12:17 | HHI.FF ---
Face to Face Verification Diagnosis: (1) Pleural effusion on left (2) Pleural effusion on right (3) Hypertensive urgency (4) Pulmonary edema (5) CHF (congestive heart failure) Physical Therapy Order: Evaluate and Treat Home Health Nursing Order: Medical education Signs/symptoms of disease process CHF education Nursing assessment with vital signs I have seen patient Reny Raymundo on 04/09/17. My clinical findings support the need for the requested home health care services because: Deconditioned w/ increased weakness Need for psychosocial assistance I certify that my clinical findings support that this patient is homebound because: Hx COPD- exertion dyspnea/weakness Unsteady gait/balance Poor cardiac reserve Kala Fragoso [facility] Apr 09, 2017 12:17
--- NOTE | 2017-04-09 12:25 | PD.CARD.PN ---
Subjective Subjective Remarks Pt without complaints Objective Medications Current Medications Medications (Trade) Dose Ordered Sig/Kelsi Route Start Time Stop Time Status Last Admin (NS Flush) 2 ml UNSCH PRN IV FLUSH 04/07/17 18:45 (NS Flush) 2 ml BID IV FLUSH 04/07/17 21:00 04/09/17 09:06 (Zofran Inj) 4 mg Q6H PRN IVP 04/07/17 18:45 (Heparin Inj) 5,000 units Q12H SQ 04/07/17 21:00 04/09/17 09:04 (Narcan Inj) 0.4 mg UNSCH PRN IV 04/07/17 18:45 (Vasotec Inj) 1.25 mg Q6H PRN IV PUSH 04/07/17 19:00 04/08/17 16:25 (Aspirin Chew) 81 mg DAILY CHEW 04/08/17 09:00 04/09/17 09:05 (Flomax) 0.4 mg HS PO 04/07/17 21:00 04/08/17 14:43 (Catapres) 0.1 mg Q6H PRN PO 04/07/17 19:45 04/09/17 00:09 (Desyrel) 150 mg HS PO 04/07/17 21:00 04/09/17 00:10 (Vasotec) 20 mg Q12HR PO 04/08/17 21:00 04/09/17 09:05 (Lopressor) 50 mg Q12HR PO 04/08/17 21:00 04/09/17 09:05 (KCl) 20 meq Q12HR PO 04/08/17 09:00 04/09/17 09:06 (K-Lyte Cl Eff) 25 meq Q12HR NG 04/08/17 21:00 04/09/17 09:03 (Procardia Xl) 30 mg DAILY PO 04/08/17 19:45 04/09/17 09:05 (Deltasone) 30 mg DAILY PO 04/10/17 09:00 UNV (Lasix) 20 mg BID@09,18 PO 04/09/17 18:00 UNV Vital Signs / I&O Vital Signs Date Time Temp Pulse Resp B/P Pulse Ox O2 Delivery O2 Flow Rate FiO2 04/09/17 10:00 57 04/09/17 09:00 58 04/09/17 08:00 98.2 72 24 122/93 98 04/09/17 08:00 68 04/09/17 07:20 81 04/09/17 06:42 59 119/80 04/09/17 06:00 60 04/09/17 05:00 66 04/09/17 04:30 98.1 69 22 130/88 96 04/09/17 04:00 60 04/09/17 03:00 74 04/09/17 02:00 71 126/83 04/09/17 02:00 70 04/09/17 01:00 59 04/09/17 00:33 75 04/09/17 00:23 97.3 76 16 158/100 96 04/08/17 23:00 69 18 143/91 96 04/08/17 19:00 97.6 76 18 163/114 97 04/08/17 17:00 142/92 04/08/17 16:00 138/97 04/08/17 15:30 98.5 82 27 164/118 98 04/08/17 14:49 82 I/O 04/08/17 04/08/17 04/08/17 04/09/17 04/09/17 04/09/17 06:59 14:59 22:59 06:59 14:59 22:59 Intake Total 480 ml 1710 ml 240 ml Output Total 1200 ml 475 ml 150 ml Balance -720 ml 1235 ml 90 ml Intake Oral 480 ml 1710 ml 240 ml Output Urine Total 1200 ml 475 ml 150 ml # Voids 2 1 # Bowel Movements 0 0 Physical Exam GENERAL: Well developed, well nourished. No acute distress. HEENT: Jugular venous pressure is normal. CHEST: Lungs decreased and clear to auscultation bilaterally. Unlabored respiratory effort. CARDIAC: Regular rate and rhythm without S3, S4, or murmur. ABDOMEN: Soft, nontender, no hepatosplenomegaly. Bowel sounds present. EXTREMITIES: No clubbing, cyanosis, or edema. Laboratory Laboratory Tests Test 04/08/17 04/08/17 04/09/17 15:50 19:51 03:32 Troponin I 0.03 NG/ML Potassium Level 4.5 MEQ/L 4.2 MEQ/L Phosphorus Level 2.8 MG/DL 3.5 MG/DL Magnesium Level 2.4 MG/DL 2.4 MG/DL White Blood Count 7.7 TH/MM3 Red Blood Count 5.14 MIL/MM3 Hemoglobin 15.0 GM/DL Hematocrit 46.3 % Mean Corpuscular Volume 90.2 FL Mean Corpuscular Hemoglobin 29.2 PG Mean Corpuscular Hemoglobin 32.3 % Concent Red Cell Distribution Width 15.0 % Platelet Count 175 TH/MM3 Mean Platelet Volume 10.0 FL Neutrophils (%) (Auto) 93.4 % Lymphocytes (%) (Auto) 4.6 % Monocytes (%) (Auto) 1.9 % Eosinophils (%) (Auto) 0.0 % Basophils (%) (Auto) 0.1 % Neutrophils # (Auto) 7.2 TH/MM3 Lymphocytes # (Auto) 0.4 TH/MM3 Monocytes # (Auto) 0.1 TH/MM3 Eosinophils # (Auto) 0.0 TH/MM3 Basophils # (Auto) 0.0 TH/MM3 CBC Comment DIFF FINAL Differential Comment Sodium Level 139 MEQ/L Chloride Level 104 MEQ/L Carbon Dioxide Level 27.5 MEQ/L Anion Gap 8 MEQ/L Blood Urea Nitrogen 24 MG/DL Creatinine 1.25 MG/DL Estimat Glomerular Filtration 59 ML/MIN Rate Random Glucose 130 MG/DL Calcium Level 8.6 MG/DL Assessment and Plan Assessment and Plan systolic CHF- EF 30%, doing good on present meds -need to establish compliance prior to considering an ICD -pt refused life vest in past and also today HTN- reasonable COPD- Smoking- asked to quit Dispo- ok for d/c home Kat Nelson MD Apr 09, 2017 12:25
[2017-04-09] MEDS ORDERED: ENAL10TA PO (13:38)
[2017-04-09] MEDS ORDERED: METO-309 PO (13:38)
[2017-04-09] MEDS ORDERED: NIFE30TA8 PO (13:38)
[2017-04-09] MEDS ORDERED: FURO20TA PO (13:38)
[2017-04-09] MEDS ORDERED: POTA20TA5 PO (13:38)
[2017-04-09] MEDS ORDERED: PRED10 PO (13:38)
[2017-04-09] MEDS ORDERED: FUROSEMIDE 20 MG TAB PO SCH (18:00)
--- NOTE | 2017-04-09 18:14 | HHI.DS ---
Discharge Summary Admission Date Apr 07, 2017 at 18:37 Discharge Date: Apr 09, 2017 Admitting Diagnosis Pulmonary edema (1) Pulmonary edema (2) Pleural effusion on left (3) Pleural effusion on right (4) Hypertensive urgency (5) CHF (congestive heart failure) (6) COPD (chronic obstructive pulmonary disease) (7) Cardiomyopathy (8) Non-compliance CBC/BMP: 04/09/17 0332 04/09/17 0332 Significant Findings Laboratory Tests Test 04/07/17 04/08/17 04/09/17 15:00 05:35 03:32 Neutrophils (%) (Auto) 83.0 % 90.0 % 93.4 % (16.0-70.0) (16.0-70.0) (16.0-70.0) Lymphocytes (%) (Auto) 8.4 % 7.1 % 4.6 % (9.0-44.0) (9.0-44.0) (9.0-44.0) Lymphocytes # (Auto) 0.6 TH/MM3 0.4 TH/MM3 0.4 TH/MM3 (1.0-4.8) (1.0-4.8) (1.0-4.8) Estimat Glomerular Filtration 65 ML/MIN (>89) 61 ML/MIN (>89) 59 ML/MIN (>89) Rate Calcium Level 8.4 MG/DL (8.5-10.1) Creatine Kinase MB 5.0 NG/ML (0.5-3.6) B-Type Natriuretic Peptide 1852 PG/ML (0-100) Random Glucose 123 MG/DL 130 MG/DL (74-106) (74-106) Blood Urea Nitrogen 24 MG/DL (7-18) Imaging Last Impressions Chest X-Ray 04/07/17 5325 Signed Impressions: Service Date/Time: March 16:00 - CONCLUSION: Blunting of both costophrenic angles suspicious for pleural effusions. No focal infiltrate Phoenix Kilgore MD Hospital Course This is a very pleasant 61-year-old male patient of Dr. Ingram. The patient still smokes. He is now smoking less than 1 pack a day. He recently moved to this area from [place]. He had a cardiac catheterization in [place] about 2 years ago. He stated that this cardiac catheterization was normal. He came into the emergency department with worsening shortness of breath and lower extremity edema. His arrival blood pressure was about 220. He stated that he has had trouble with his blood pressure for number of years. The blood pressure control has been especially difficult to achieve up the last 2 years. He denied any chest pain. No fever chills or diaphoresis. He cough repeatedly. He has chronic wheezing. He was seen in the ED. He continued to cough but feeling much better. He specifically stated that his breathing got much better once his supplemental oxygen was started. Patient was admitted for: Hypertensive emergency, blood pressure improved Frequent ectopy Pulmonary edema Severe COPD Severe dyspnea, improved acute heart failure Ejection fraction 30-35% Rule out sleep apnea Tobacco abuse During the course of the hospitalization, the following took place: pt. was admitted ,continuous cardiac telemetry was ordered Patient was put on IV Lasix, nitro drip 2-D echo was ordered EF of 30-35% and was noted Serial cardiac enzymes were done, troponin mildly elevated, not trending upwards. BNP was 1852 Patient was continued on Olvin inhibitors and beta shant Patient was put on supplemental oxygen IV Solu-Medrol was started, as well as duo nebs He was counseled about tobacco abuse As his respiratory status improved, he was changed to oral steroids Patient's blood pressure improved, he diuresed well Dr. Nelson reevaluated patient, recommended life vest however patient decline. Patient had been offered this in the past. She recommended that the patient follow up with her as outpatient and continue on present medical treatment. Dr. Nelson to eval as outpatient for possible AICD however patient compliance is questionable Walk test was done to determine if patient would need oxygen, patient passed CM was consulted for home health care Physical therapy was ordered Cardiology cleared for discharge Patient was discharged home with home health care in stable condition He was instructed to follow up with cardiology Pt Condition on Discharge: Stable Discharge Disposition: Discharge Home Discharge Instructions DIET: Follow Instructions for: Heart Healthy Diet Activities you can perform: Regular-No Restrictions Follow up Referrals: Cardiology - 2 Weeks with Kat Nelson PCP Follow-up - 1 Week New Medications: Prednisone (Prednisone) 10 Mg Tab 10 MG PO DAILY TAKE 1 TAB PO TID FOR 2 DAYS, THEN 1 TAB PO BID FOR 3 DAYS, THEN 1 TAB PO DAILY FOR 3 DAYS THEN DISCONTINUE WHEEZING #15 Ref 0 TAB Enalapril (Enalapril) 10 Mg Tab 20 MG PO Q12HR CHF Days 30 TAB Furosemide (Furosemide) 20 Mg Tab 20 MG PO BID@09,18 CHF Days 30 TAB Metoprolol Tartrate (Lopressor) 50 Mg Tab 50 MG PO Q12HR CHF Days 30 TAB Nifedipine ER 24 HR (Nifedipine ER 24 HR) 30 Mg Tab 30 MG PO DAILY HTN Days 30 TAB Potassium Chloride Microencaps (Potassium Chloride Microencaps) 20 Meq Tab 20 MEQ PO Q12HR ON LASIX Days 30 TAB Continued Medications: Aspirin (Aspirin) 81 Mg Chew 81 MG CHEW DAILY Ref 0 TAB Tamsulosin (Tamsulosin) 0.4 Mg Cap 0.4 MG PO HS Manage Prostate Problems #30 Ref 0 CAP Trazodone (Trazodone) 150 Mg Tablet 150 MG PO HS Control Depression #30 Ref 0 TAB Discontinued Medications: Enalapril (Enalapril) 20 Mg Tab 20 MG PO DAILY #30 Ref 0 TAB Metoprolol Tartrate (Metoprolol Tartrate) 25 Mg Tab 25 MG PO BID #60 Ref 0 TAB Kala Fragoso [facility] [place] Apr 09, 2017 18:14
[2017-04-10] MEDS ORDERED: predniSONE 10 MG TAB PO SCH (09:00)
--- NOTE | 2017-04-12 11:54 | EKG ---
Date Performed: 04/07/2017 Time Performed: 21:46:30 PTAGE: 61 years EKG: Sinus rhythm WITH OCCASIONAL VENTRICULAR PREMATURE COMPLEXES LEFT ATRIAL ENLARGEMENT ST DEVIATION AND MODERATE T- WAVE ABNORMALITY, CONSIDER ANTEROLATERAL ISCHEMIA ABNORMAL ECG PREVIOUS TRACING : 04/07/2017 16.39 Compared to prior tracing no significant change DOCTOR: Simon Ramirez Interpretating Date/Time 04/12/2017 11:53:41
== END 2017-04-09 17:34 | disposition home or self-care (01) | DRG 292 ==
LOC: NEDAMB 14:00 → NEDA 18:37 → NEDH 23:18 → N03B 04-08 09:02 → HCIN 04-09 00:08
PROVIDERS: ADMIT Specialist; ATTEND Specialist
DX: I11.0 Hypertensive heart disease with heart failure (principal); I16.1 Hypertensive emergency; I42.9 Cardiomyopathy, unspecified; J44.9 Chronic obstructive pulmonary disease, unspecified; F17.210 Nicotine dependence, cigarettes, uncomplicated; F12.90 Cannabis use, unspecified, uncomplicated; I50.20 Unspecified systolic (congestive) heart failure; N40.0 Benign prostatic hyperplasia without lower urinary tract symptoms; Z79.899 Other long term (current) drug therapy; Z91.19 Patient's noncompliance with other medical treatment and regimen
CPT/HCPCS: 71010; 80048; 82550; 82552; 83735; 83880; 84100; 84132; 84484; 85025; 85610; 85730; 93005; 93306; 94620; 94640; 94664; 96374; 96375; J0360; J1644; J1940; J2920

== ENCOUNTER → 2017-07-11 | Outpatient (CLI) | payer MEDICARE ==
[~2017-07-11] MED LIST: ASPI81CH CHEW; ENAL10TA PO; FURO20TA PO; METO-309 PO; NIFE30TA8 PO; POTA20TA5 PO; PRED10 PO; TAMS0.4C4 PO; TRAZ1TAB45 PO
[2017-07-11 11:31] LABS: BICARBONATE 25.2 MEQ/L (21.0-32.0)
== END ==
LOC: CLAB 10:28
PROVIDERS: ATTEND Internal Medicine Interventional Cardiology
DX: I50.9 Heart failure, unspecified (principal); I42.9 Cardiomyopathy, unspecified; Z79.899 Other long term (current) drug therapy
CPT/HCPCS: 36415; 80048